=== PATIENT | male | born 1935 | race Hispanic/Latino ===

== ENCOUNTER → 2018-05-12 | Outpatient (CLI) | payer OTHER ==
[~2018-05-12] MED LIST: AMLO2.5T3 PO; ASPI-1005 PO; ASPI-555 PO; FURO20TA6 PO; LORA0.5T2 PO; LOSA100T20 PO; METO-391 PO; PARO10TA87 PO; PROB500T26 PO; SIMV20TA6 PO; SITA1TAB6 PO; TAMS-1 PO; TAMS0.4C32 PO; TYL3 PO; WARF-57 PO; WARF7.5T49 PO
== END | disposition home or self-care (01) ==
LOC: OIH 10:44
PROVIDERS: ATTEND Family Medicine
DX: I10 Essential (primary) hypertension (principal); Z95.0 Presence of cardiac pacemaker
CPT/HCPCS: 71046

== ENCOUNTER → 2018-09-19 | Outpatient (CLI) | payer OTHER, MEDICARE ==
[~2018-09-19] MED LIST changes: -AMLO2.5T3 PO; +AMLO2.5T4 PO; -LOSA100T20 PO; +LOSA100T58 PO
== END | disposition home or self-care (01) ==
LOC: OIH 08:37
PROVIDERS: ATTEND Family Medicine
DX: M94.0 Chondrocostal junction syndrome [Tietze] (principal)
CPT/HCPCS: 71046

== ENCOUNTER → 2018-12-27 | Outpatient (CLI) | payer OTHER, MEDICARE | END | disposition home or self-care (01) | LOC: SHCH 09:43 | PROVIDERS: ATTEND Internal Medicine Cardiovascular Disease | DX: I65.23 Occlusion and stenosis of bilateral carotid arteries (principal); I25.10 Atherosclerotic heart disease of native coronary artery without angina pectoris | CPT/HCPCS: 93880 ==

== ENCOUNTER → 2018-12-30 | Outpatient (CLI) | payer OTHER, MEDICARE | END | disposition home or self-care (01) | LOC: OIH 09:26 | PROVIDERS: ATTEND Family Medicine | DX: M25.511 Pain in right shoulder (principal) | CPT/HCPCS: 73030 ==

== ENCOUNTER → 2019-01-16 | Outpatient (CLI) | payer OTHER, MEDICARE ==
[~2019-01-16] VITALS: Ht 167.6 cm; Wt 103.9 kg
[~2019-01-16] MED LIST changes: +REGADENOSON 0.4 MG/5 ML PF SYG IVP SCH
== END | disposition home or self-care (01) ==
LOC: SHCH 08:06
PROVIDERS: ATTEND Internal Medicine Cardiovascular Disease
DX: I21.19 ST elevation (STEMI) myocardial infarction involving other coronary artery of inferior wall (principal); I25.89 Other forms of chronic ischemic heart disease; I25.10 Atherosclerotic heart disease of native coronary artery without angina pectoris
CPT/HCPCS: 78452; 93017; 96374; A9500 ×2; J2785

== ENCOUNTER → 2019-06-14 | Outpatient (CLI) | payer OTHER, MEDICARE ==
[~2019-06-14] MED LIST changes: -REGADENOSON 0.4 MG/5 ML PF SYG IVP SCH; +SIMV-43 PO; -SIMV20TA6 PO
== END | disposition home or self-care (01) ==
LOC: OIH 09:15
PROVIDERS: ATTEND Family Medicine
DX: I50.9 Heart failure, unspecified (principal); Z95.0 Presence of cardiac pacemaker; Z96.89 Presence of other specified functional implants
CPT/HCPCS: 71046

== ENCOUNTER → 2019-06-16 | Outpatient (CLI) | payer OTHER, MEDICARE | END | disposition home or self-care (01) | LOC: RAH 08:02 | PROVIDERS: ATTEND Family Medicine | DX: R18.8 Other ascites (principal); I50.9 Heart failure, unspecified | CPT/HCPCS: 76700 ==

== ENCOUNTER → 2019-08-11 | Outpatient (CLI) | payer OTHER, MEDICARE | END | disposition home or self-care (01) | LOC: SHCH 11:16 | PROVIDERS: ATTEND Internal Medicine Cardiovascular Disease | DX: I08.0 Rheumatic disorders of both mitral and aortic valves (principal) | CPT/HCPCS: 93306; 93356 ==

== ENCOUNTER → 2019-09-28 | Outpatient (CLI) | payer OTHER, MEDICARE | END | disposition home or self-care (01) | LOC: OIH 09:38 | PROVIDERS: ATTEND Family Medicine | DX: R05 Cough (principal) | CPT/HCPCS: 71046 ==

== ENCOUNTER → 2020-03-05 | Outpatient (CLI) | payer OTHER, MEDICARE ==
[~2020-03-05] MED LIST changes: -ASPI-555 PO; +ASPI-556 PO
== END | disposition home or self-care (01) ==
LOC: SHCH 09:04
PROVIDERS: ATTEND Internal Medicine Cardiovascular Disease
DX: I73.9 Peripheral vascular disease, unspecified (principal); R60.9 Edema, unspecified
CPT/HCPCS: 93925; 93970

== ENCOUNTER → 2020-07-11 | Outpatient (CLI) | payer OTHER, MEDICARE | END | disposition home or self-care (01) | LOC: RAH 09:54 | PROVIDERS: ATTEND Family Medicine | DX: R60.9 Edema, unspecified (principal) | CPT/HCPCS: 93971 ==

== ENCOUNTER → 2020-09-24 | Outpatient (CLI) | payer OTHER, MEDICARE | END | disposition home or self-care (01) | LOC: SHCH 09:42 | PROVIDERS: ATTEND Internal Medicine Cardiovascular Disease | DX: I65.23 Occlusion and stenosis of bilateral carotid arteries (principal); I25.10 Atherosclerotic heart disease of native coronary artery without angina pectoris | CPT/HCPCS: 93880 ==

== ENCOUNTER 2021-03-14 18:52 | Inpatient (IN) | payer OTHER, MEDICARE ==
[~2021-03-14] VITALS: Ht 167.6 cm; Wt 114.4 kg
[2021-03-14 18:58] VITALS: BP 119/50
[2021-03-14 20:16] VITALS: BP 123/50
[2021-03-14 20:47] LABS: BASOPHILS % (AUTO) 0.2 % (0.0-5.0); EOSINOPHILS % (AUTO) 0.1 % (0.0-8.0); HEMATOCRIT 21.4 % (42-54); LYMPHOCYTES % (AUTO) 7.7 % (21.0-51.0); MEAN CORPUSCULAR HGB CONC 33.2 g/dL (32.0-36.0); MEAN CORPUSCULAR VOLUME 90.3 fL (79-99); NEUTROPHILS % (AUTO) 79.9 % (40.0-77.0); PLATELET COUNT (AUTO) 120 K/uL (130-400); RED BLOOD CELL COUNT(AUTO) 2.37 MIL/uL (4.50-6.20); RED CELL DISTRIBUTION WIDTH 15.1 % (11.0-15.5)
[2021-03-14 21:07] LABS: B-TYPE NATRIURETIC PEPTIDE 142 pg/mL (0-100)
[2021-03-14 21:11] LABS: POTASSIUM 4.4 mmol/L (3.5-5.1)
[2021-03-14 21:16] LABS: ALBUMIN 2.5 g/dL (3.5-5.0); BILIRUBIN,TOTAL 1.2 mg/dL (0.2-1.0); TOTAL PROTEIN, SERUM 7.1 g/dL (6.0-8.3)
[2021-03-14 21:46] LABS: APPEARANCE,URINE Clear (CLEAR); BILIRUBIN,URINE Negative (NEGATIVE); COLOR,URINE Yellow (YELLOW); GLUCOSE, URINE (UA) Negative (NEGATIVE); KETONES,URINE Negative (NEGATIVE); LEUKOCYTE ESTERASE ,URINE Negative (NEGATIVE); NITRATE,URINE Negative (NEGATIVE); OCCULT BLOOD,URINE Negative (NEGATIVE); PROTEIN,URINE Trace mg/dL (NEGATIVE); UROBILINOGEN,URINE 0.2 mg/dL (0.2-1.0)
[2021-03-14 21:53] LABS: AMORPHOUS SEDIMENT,UR Rare /LPF (None Seen); BACTERIA,URINE Few /HPF (None Seen); RBC,URINE 0-1 /HPF (0-1); SQUAMOUS EPITHELIAL CELL,UR Rare /HPF (0-2); WBC,URINE 0-1 /HPF (0-1)
[2021-03-14] MEDS ORDERED: ASPIRIN 325MG TAB PO ONE (23:00)
[2021-03-14] MEDS ORDERED: CEFTRIAXONE 1G VIAL IVP ONE (23:00)
[2021-03-14] MEDS ORDERED: 0.9% NACL 250ML IVPB ONE (23:00)
[2021-03-14] MEDS ORDERED: AZITHROMYCIN 500MG VIAL IVPB ONE (23:00)
[2021-03-14] MEDS ORDERED: AZITHROMYCIN 500MG+NS 250ML 250 ML IV ONE (23:07)
[2021-03-14] MEDS ORDERED: ASPIRIN 325MG TAB ONE (23:07)
[2021-03-14] MEDS ORDERED: CEFTRIAXONE 1G VIAL ONE (23:07)
[2021-03-14] MEDS ORDERED: ENOXAPARIN SODIUM 40 MG/0.4 ML SYRINGE SQ SCH (23:50)
[2021-03-14] MEDS ORDERED: ROPI0.257 PO (23:54)
[2021-03-14] MEDS ORDERED: VITAD50000 PO (23:54)
[2021-03-14] MEDS ORDERED: DRON400T7 PO (23:54)
[2021-03-14] MEDS ORDERED: METO-408 PO (23:54)
[2021-03-14] MEDS ORDERED: GABA-533 PO (23:54)
[2021-03-14] MEDS ORDERED: ALEN70TA80 PO (23:54)
[2021-03-14] MEDS ORDERED: MIRA25TA PO (23:54)
[2021-03-14] MEDS ORDERED: ESCI-8 PO (23:54)
[2021-03-14] MEDS ORDERED: FOLI0.8T3 PO (23:54)
[2021-03-14] MEDS ORDERED: GLIM4TAB36 PO (23:54)
[2021-03-14] MEDS ORDERED: CILO50TA PO (23:54)
[2021-03-14] MEDS ORDERED: ALLO100T PO (23:56)
[2021-03-15] MEDS ORDERED: ONDANSETRON 4MG INJ IV PRN
[2021-03-15] MEDS ORDERED: ACETAMINOPHEN 325 MG TAB PO PRN
[2021-03-15] MEDS ORDERED: NITROGLYCERIN 0.4 MG SL TAB SL PRN
[2021-03-15] MEDS ORDERED: ZOLPIDEM TARTRATE 5 MG TAB PO PRN
[2021-03-15] MEDS ORDERED: MAG/ALUM/SIMETH 30 ML UDCUP PO PRN
[2021-03-15] MEDS ORDERED: LACTULOSE 20 GM/30 ML UDCUP PO PRN
[2021-03-15 00:01] VITALS: BP 108/47
[2021-03-15] MEDS: SIMVASTATIN 10 MG TABLET PO SCH ×2 (00:10→21:34)
[2021-03-15] MEDS ORDERED: LABETALOL 20MG SYG IV PRN (00:30)
[2021-03-15 01:02] LABS: HEMOGLOBIN A1C 6.9 % (4.0-6.0)
[2021-03-15 03:18] VITALS: BP 113/47
[2021-03-15] MEDS: CEFTRIAXONE 1G VIAL IVP SCH (05:27)
[2021-03-15] MEDS: 0.9% NACL 250ML IVPB SCH (05:30)
[2021-03-15 06:09] LABS: HEMATOCRIT 21.4 % (42-54); MEAN CORPUSCULAR HEMOGLOBIN 29.7 pg (27.0-33.0); MEAN CORPUSCULAR HGB CONC 33.2 g/dL (32.0-36.0); MEAN CORPUSCULAR VOLUME 89.5 fL (79-99); PLATELET COUNT (AUTO) 127 K/uL (130-400); RED BLOOD CELL COUNT(AUTO) 2.39 MIL/uL (4.50-6.20); RED CELL DISTRIBUTION WIDTH 14.9 % (11.0-15.5); WHITE BLOOD COUNT (AUTO) 13.4 K/uL (4.8-10.8)
[2021-03-15 06:28] LABS: BAND NEUTROPHILS % (MANUAL) 3 % (0-2); LYMPHOCYTES % (MANUAL) 7 % (22-44); MAN.DIFF COMMENT-IMPRESSION MANUAL DIFFERENTIAL; MONOCYTES % (MANUAL) 4 % (2-9); PLATELET MORPHOLOGY COMMENT ADEQUATE; SEGMENTED NEUTROPHILS % 86 % (40-70)
[2021-03-15 06:36] LABS: ALBUMIN 2.5 g/dL (3.5-5.0); CREATININE 4.3 mg/dL (0.5-1.5); POTASSIUM 4.2 mmol/L (3.5-5.1); THYROID STIMULATING HORMONE 0.53 uIU/mL (0.36-3.74)
[2021-03-15] MEDS: IPRATROPIUM/ALBUTEROL SULFATE 3 ML SOLUTION IH SCH ×5 (06:37→23:52)
[2021-03-15] MEDS ORDERED: CILOSTAZOL 100 MG TAB PO SCH (07:30)
[2021-03-15] MEDS ORDERED: HEPARIN 5,000 UNIT VIAL SQ SCH (08:00)
[2021-03-15] MEDS ORDERED: ASPIRIN 81 MG EC TAB PO SCH (09:00)
[2021-03-15] MEDS: METOPROLOL SUCCINATE 50 MG TAB.SR.24H PO SCH (09:00)
[2021-03-15] MEDS: **HM** MYRBETRIQ 25MG PO SCH (09:00)
[2021-03-15] MEDS: CITALOPRAM 20 MG TABLET PO SCH (10:38)
[2021-03-15] MEDS: FAMOTIDINE 20MG VIAL IV SCH (10:38)
[2021-03-15] MEDS: FOLIC ACID 1 MG TABLET PO SCH (10:39)
[2021-03-15] MEDS: GABAPENTIN 300 MG CAPSULE PO SCH ×2 (10:39→21:34)
[2021-03-15] MEDS: FUROSEMIDE 20 MG TABLET PO SCH (10:40)
[2021-03-15] MEDS: TAMSULOSIN HCL 0.4 MG CAP.ER.24H PO SCH (10:40)
[2021-03-15] MEDS ORDERED: DRONEDARONE HYDROCHLORIDE 400 MG TABLET PO SCH (12:00)
[2021-03-15 13:51] LABS: HEMATOCRIT 21.8 % (42-54)
[2021-03-15 14:08] LABS: PROTEIN,URINE RANDOM 61.8 mg/dL (0-11.9)
[2021-03-15] MEDS ORDERED: WARF-57 PO (15:36)
[2021-03-15] MEDS ORDERED: WARF2.5T85 PO (15:36)
[2021-03-15 20:53] LABS: HEMATOCRIT 21.1 % (42-54)
[2021-03-15] MEDS ORDERED: AZITHROMYCIN 500MG VIAL IVPB SCH (21:00)
[2021-03-15] MEDS: ROPINIROLE HCL 0.25 MG TABLET PO SCH (21:34)
[2021-03-15 21:56] VITALS: BP 116/50
[2021-03-16] VITALS (7 sets, daily range): BP systolic 110–141; BP diastolic 45–63
[2021-03-16] MEDS: GUAIFENESIN-DM 200/20 MG 10 ML PO PRN (03:47)
[2021-03-16] MEDS: CEFTRIAXONE 1G VIAL IVP SCH (04:56)
[2021-03-16] MEDS ORDERED: AZITHROMYCIN 500MG+NS 250ML 250 ML IV ONE (05:04)
[2021-03-16 05:35] LABS: BASOPHILS % (AUTO) 0.2 % (0.0-5.0); EOSINOPHILS % (AUTO) 0.3 % (0.0-8.0); HEMATOCRIT 22.6 % (42-54); LYMPHOCYTES % (AUTO) 5.2 % (21.0-51.0); MEAN CORPUSCULAR HEMOGLOBIN 30.3 pg (27.0-33.0); MEAN CORPUSCULAR HGB CONC 33.6 g/dL (32.0-36.0); MONOCYTES % (AUTO) 8.4 % (3.0-13.0); PLATELET COUNT (AUTO) 118 K/uL (130-400); RED BLOOD CELL COUNT(AUTO) 2.51 MIL/uL (4.50-6.20); RED CELL DISTRIBUTION WIDTH 14.7 % (11.0-15.5); WHITE BLOOD COUNT (AUTO) 12.8 K/uL (4.8-10.8)
[2021-03-16 05:55] LABS: INR 2.9 (0.85-1.15); PROTHROMBIN TIME 28.7 SEC (9.6-11.6)
[2021-03-16 05:58] LABS: CREATININE 4.9 mg/dL (0.5-1.5); PHOSPHORUS 7.9 mg/dL (2.5-4.9); POTASSIUM 3.6 mmol/L (3.5-5.1)
[2021-03-16] MEDS: IPRATROPIUM/ALBUTEROL SULFATE 3 ML SOLUTION IH SCH ×3 (06:00→19:42)
[2021-03-16] MEDS ORDERED: AZITHROMYCIN 500MG VIAL IVPB SCH (06:00)
[2021-03-16] MEDS: 0.9% NACL 250ML IVPB SCH (06:16)
[2021-03-16] MEDS: **HM** MYRBETRIQ 25MG PO SCH (09:00)
[2021-03-16] MEDS ORDERED: SOLU-MEDROL 40MG VIAL IVP SCH (09:00)
[2021-03-16] MEDS: FAMOTIDINE 20MG VIAL IV SCH (10:43)
[2021-03-16] MEDS: FOLIC ACID 1 MG TABLET PO SCH (10:43)
[2021-03-16] MEDS: CITALOPRAM 20 MG TABLET PO SCH (10:43)
[2021-03-16] MEDS: TAMSULOSIN HCL 0.4 MG CAP.ER.24H PO SCH (10:43)
[2021-03-16] MEDS: GABAPENTIN 300 MG CAPSULE PO SCH ×2 (10:43→20:14)
[2021-03-16] MEDS: METOPROLOL SUCCINATE 50 MG TAB.SR.24H PO SCH ×2 (10:44→10:58)
[2021-03-16] MEDS ORDERED: EPOETIN ALFA-EPBX (ESRD) 10,000 UNIT/ML VIAL SQ SCH (13:00)
[2021-03-16] MEDS ORDERED: COMPOUND IV MISC 1 EACH IVSOLN MISC PRN (13:00)
[2021-03-16] MEDS: DRONEDARONE HYDROCHLORIDE 400 MG TABLET PO SCH ×2 (13:45→20:14)
[2021-03-16] MEDS: ROPINIROLE HCL 0.25 MG TABLET PO SCH (20:14)
[2021-03-16] MEDS: SIMVASTATIN 10 MG TABLET PO SCH (20:14)
[2021-03-16] MEDS: IRON SUCROSE COMPLEX 100 MG in 0.9%NACL 50ML 50 ML IV SCH (20:15)
[2021-03-16] MEDS: ACETAMINOPHEN 325 MG TAB PO PRN (23:39)
[2021-03-17] MEDS: IPRATROPIUM/ALBUTEROL SULFATE 3 ML SOLUTION IH SCH ×5 (02:09→23:26)
[2021-03-17 03:57] VITALS: BP 123/48
[2021-03-17] MEDS: 0.9% NACL 250ML IVPB SCH ×2 (04:15→23:39)
[2021-03-17] MEDS: CEFTRIAXONE 2GM VIAL IVP SCH (04:28)
[2021-03-17 06:10] LABS: HEMATOCRIT 22.2 % (42-54); MEAN CORPUSCULAR HEMOGLOBIN 29.3 pg (27.0-33.0); MEAN CORPUSCULAR HGB CONC 34.2 g/dL (32.0-36.0); MEAN CORPUSCULAR VOLUME 85.7 fL (79-99); PLATELET COUNT (AUTO) 135 K/uL (130-400); RED BLOOD CELL COUNT(AUTO) 2.59 MIL/uL (4.50-6.20); RED CELL DISTRIBUTION WIDTH 14.7 % (11.0-15.5); WHITE BLOOD COUNT (AUTO) 11.1 K/uL (4.8-10.8)
[2021-03-17 06:24] LABS: CREATININE 4.3 mg/dL (0.5-1.5); POTASSIUM 3.1 mmol/L (3.5-5.1)
[2021-03-17 07:10] LABS: ERYTHROCYTE SEDIMENTATION RATE > 150 MM/HR (0-20)
[2021-03-17 08:12] VITALS: BP 134/54
[2021-03-17] MEDS: **HM** MYRBETRIQ 25MG PO SCH (09:00)
[2021-03-17] MEDS: TAMSULOSIN HCL 0.4 MG CAP.ER.24H PO SCH (09:26)
[2021-03-17] MEDS: GABAPENTIN 300 MG CAPSULE PO SCH ×2 (09:26→21:22)
[2021-03-17] MEDS: CITALOPRAM 20 MG TABLET PO SCH (09:26)
[2021-03-17] MEDS: DRONEDARONE HYDROCHLORIDE 400 MG TABLET PO SCH ×2 (09:26→17:02)
[2021-03-17] MEDS: FOLIC ACID 1 MG TABLET PO SCH (09:26)
[2021-03-17] MEDS: FAMOTIDINE 20MG VIAL IV SCH (09:26)
[2021-03-17] MEDS: METOPROLOL SUCCINATE 50 MG TAB.SR.24H PO SCH (09:27)
[2021-03-17] MEDS: FUROSEMIDE 20 MG TABLET PO SCH (09:27)
[2021-03-17] MEDS: IRON SUCROSE COMPLEX 100 MG in 0.9%NACL 50ML 50 ML IV SCH (09:27)
[2021-03-17 11:49] VITALS: BP 141/48
[2021-03-17] MEDS ORDERED: KCL 20 MEQ ERTAB PO ONE ×2 (15:30→17:00)
[2021-03-17 16:34] VITALS: BP 129/54
[2021-03-17] MEDS ORDERED: WARFARIN SODIUM 2.5 MG TAB PO SCH (17:00)
[2021-03-17 20:00] VITALS: BP 124/55
[2021-03-17] MEDS ORDERED: WARFARIN SODIUM 5 MG TAB PO SCH (21:00)
[2021-03-17] MEDS: WARFARIN SODIUM 2.5 MG TAB PO SCH (21:23)
[2021-03-17] MEDS: SIMVASTATIN 10 MG TABLET PO SCH (21:23)
[2021-03-17] MEDS: ROPINIROLE HCL 0.25 MG TABLET PO SCH (21:23)
[2021-03-18] VITALS (7 sets, daily range): BP systolic 104–129; BP diastolic 45–74
[2021-03-18] MEDS: CEFTRIAXONE 2GM VIAL IVP SCH (04:52)
[2021-03-18 05:01] LABS: MEAN CORPUSCULAR HEMOGLOBIN 29.1 pg (27.0-33.0); MEAN CORPUSCULAR HGB CONC 33.5 g/dL (32.0-36.0); MEAN CORPUSCULAR VOLUME 86.8 fL (79-99); NUCLEATED RED BLOOD CELLS 0.2 % (0.0-0.19); RED BLOOD CELL COUNT(AUTO) 2.65 MIL/uL (4.50-6.20); RED CELL DISTRIBUTION WIDTH 14.9 % (11.0-15.5)
[2021-03-18 05:21] LABS: CREATININE 3.6 mg/dL (0.5-1.5)
[2021-03-18 05:39] LABS: POTASSIUM 2.5 mmol/L (3.5-5.1)
[2021-03-18 05:55] LABS: PROTHROMBIN TIME 38.6 SEC (9.6-11.6)
[2021-03-18 05:56] LABS: INR 4.02 (0.85-1.15)
[2021-03-18] MEDS: KCL 20 MEQ ERTAB PO SCH ×2 (06:00→23:28)
[2021-03-18] MEDS ORDERED: KCL 20 MEQ ERTAB PO ONE ×2 (06:02→23:30)
[2021-03-18] MEDS: IPRATROPIUM/ALBUTEROL SULFATE 3 ML SOLUTION IH SCH ×3 (06:31→18:29)
[2021-03-18] MEDS: IRON SUCROSE COMPLEX 100 MG in 0.9%NACL 50ML 50 ML IV SCH (08:59)
[2021-03-18] MEDS: DRONEDARONE HYDROCHLORIDE 400 MG TABLET PO SCH ×2 (09:00→15:22)
[2021-03-18] MEDS: **HM** MYRBETRIQ 25MG PO SCH (09:00)
[2021-03-18] MEDS ORDERED: KCL 20 MEQ ERTAB PO SCH (09:00)
[2021-03-18] MEDS: CITALOPRAM 20 MG TABLET PO SCH (09:01)
[2021-03-18] MEDS: FAMOTIDINE 20MG VIAL IV SCH (09:01)
[2021-03-18] MEDS: FOLIC ACID 1 MG TABLET PO SCH (09:02)
[2021-03-18] MEDS: GABAPENTIN 300 MG CAPSULE PO SCH ×2 (09:02→20:59)
[2021-03-18] MEDS: TAMSULOSIN HCL 0.4 MG CAP.ER.24H PO SCH (09:04)
[2021-03-18] MEDS: DOXYCYCLINE 100MG+NS 250ML IV SCH (15:26)
[2021-03-18] MEDS: 0.9% NACL 250ML IVPB SCH (15:27)
[2021-03-18] MEDS: ROPINIROLE HCL 0.25 MG TABLET PO SCH (20:58)
[2021-03-18] MEDS ORDERED: WARFARIN SODIUM 5 MG TAB PO SCH (21:00)
[2021-03-18] MEDS: SIMVASTATIN 10 MG TABLET PO SCH (21:00)
[2021-03-18 21:58] LABS: CREATININE 2.9 mg/dL (0.5-1.5)
[2021-03-18 22:01] LABS: POTASSIUM 2.8 mmol/L (3.5-5.1)
[2021-03-19] MEDS: IPRATROPIUM/ALBUTEROL SULFATE 3 ML SOLUTION IH SCH ×4 (00:40→17:19)
[2021-03-19] MEDS: DOXYCYCLINE 100MG+NS 250ML IV SCH ×2 (02:31→14:35)
[2021-03-19] MEDS: 0.9% NACL 250ML IVPB SCH ×2 (02:31→14:36)
[2021-03-19 04:06] VITALS: BP 125/58
[2021-03-19 04:27] LABS: HEMATOCRIT 23.5 % (42-54); MEAN CORPUSCULAR HGB CONC 33.6 g/dL (32.0-36.0); MEAN CORPUSCULAR VOLUME 86.4 fL (79-99); RED BLOOD CELL COUNT(AUTO) 2.72 MIL/uL (4.50-6.20); RED CELL DISTRIBUTION WIDTH 15.2 % (11.0-15.5); WHITE BLOOD COUNT (AUTO) 10.1 K/uL (4.8-10.8)
[2021-03-19 04:50] LABS: CREATININE 2.6 mg/dL (0.5-1.5)
[2021-03-19 04:55] LABS: POTASSIUM 2.9 mmol/L (3.5-5.1)
[2021-03-19 05:00] LABS: PARTIAL THROMBOPLASTIN TIME 63.8 SEC (26.3-35.5)
[2021-03-19 05:06] LABS: PROTHROMBIN TIME 40.5 SEC (9.6-11.6)
[2021-03-19 05:07] LABS: INR 4.24 (0.85-1.15)
[2021-03-19] MEDS ORDERED: KCL 20 MEQ ERTAB PO ONE ×4 (05:10→11:18)
[2021-03-19] MEDS: CEFTRIAXONE 2GM VIAL IVP SCH (05:28)
[2021-03-19] MEDS: WARFARIN SODIUM 2.5 MG TAB PO SCH (05:29)
[2021-03-19] MEDS: ACETAMINOPHEN 325 MG TAB PO PRN (05:37)
[2021-03-19 08:00] VITALS: BP 110/39
[2021-03-19] MEDS: DRONEDARONE HYDROCHLORIDE 400 MG TABLET PO SCH ×2 (11:28→15:42)
[2021-03-19] MEDS: FAMOTIDINE 20MG VIAL IV SCH (11:28)
[2021-03-19] MEDS: IRON SUCROSE COMPLEX 100 MG in 0.9%NACL 50ML 50 ML IV SCH (11:28)
[2021-03-19] MEDS: TAMSULOSIN HCL 0.4 MG CAP.ER.24H PO SCH (11:29)
[2021-03-19] MEDS: FOLIC ACID 1 MG TABLET PO SCH (11:29)
[2021-03-19] MEDS: METOPROLOL SUCCINATE 50 MG TAB.SR.24H PO SCH (11:29)
[2021-03-19] MEDS: CITALOPRAM 20 MG TABLET PO SCH (11:30)
[2021-03-19] MEDS: GABAPENTIN 300 MG CAPSULE PO SCH ×2 (11:30→20:48)
[2021-03-19] MEDS: FUROSEMIDE 20 MG TABLET PO SCH (11:33)
[2021-03-19] MEDS: **HM** MYRBETRIQ 25MG PO SCH (11:36)
[2021-03-19 12:00] VITALS: BP 141/47
[2021-03-19 15:18] LABS: CREATININE 2.3 mg/dL (0.5-1.5)
[2021-03-19 16:00] VITALS: BP 122/78
[2021-03-19] MEDS ORDERED: POTASSIUM CHLORIDE 10% ELIXIR 20 MEQ/15 ML UDCUP PO PRN (16:00)
[2021-03-19] MEDS ORDERED: SOLU-MEDROL 125MG VIAL IVP ONE (16:30)
[2021-03-19] MEDS ORDERED: BENZONATATE 100 MG CAPSULE PO PRN (17:00)
[2021-03-19] MEDS ORDERED: SOLU-MEDROL 125MG VIAL ONE (17:33)
[2021-03-19] MEDS: GUAIFENESIN-DM 200/20 MG 10 ML PO PRN (17:35)
[2021-03-19] MEDS: LIDOCAINE HCL-MPF 1% 2ML VIAL IV PRN (17:35)
[2021-03-19] MEDS: POTASSIUM CHLORIDE 10MEQ/100ML 100 ML IV PRN (17:37)
[2021-03-19 19:35] VITALS: BP 151/70
[2021-03-19] MEDS: SIMVASTATIN 10 MG TABLET PO SCH (20:47)
[2021-03-19] MEDS: ROPINIROLE HCL 0.25 MG TABLET PO SCH (20:47)
[2021-03-19 23:44] VITALS: BP 143/60
[2021-03-20] MEDS: IPRATROPIUM/ALBUTEROL SULFATE 3 ML SOLUTION IH SCH ×5 (00:26→23:26)
[2021-03-20 03:20] VITALS: BP 146/68
[2021-03-20] MEDS: 0.9% NACL 250ML IVPB SCH ×2 (04:08→15:11)
[2021-03-20] MEDS: DOXYCYCLINE 100MG+NS 250ML IV SCH ×2 (04:08→15:10)
[2021-03-20] MEDS: CEFTRIAXONE 2GM VIAL IVP SCH (05:35)
[2021-03-20 05:38] LABS: HEMATOCRIT 26.3 % (42-54); MEAN CORPUSCULAR HEMOGLOBIN 29.2 pg (27.0-33.0); MEAN CORPUSCULAR HGB CONC 33.5 g/dL (32.0-36.0); MEAN CORPUSCULAR VOLUME 87.4 fL (79-99); RED BLOOD CELL COUNT(AUTO) 3.01 MIL/uL (4.50-6.20); RED CELL DISTRIBUTION WIDTH 15.6 % (11.0-15.5); WHITE BLOOD COUNT (AUTO) 12.5 K/uL (4.8-10.8)
[2021-03-20] MEDS: DRONEDARONE HYDROCHLORIDE 400 MG TABLET PO SCH ×2 (06:33→18:02)
[2021-03-20 06:48] LABS: ALBUMIN 2.1 g/dL (3.5-5.0); BILIRUBIN,TOTAL 0.4 mg/dL (0.2-1.0); POTASSIUM 3.2 mmol/L (3.5-5.1); TOTAL PROTEIN, SERUM 7.3 g/dL (6.0-8.3)
[2021-03-20] MEDS: LIDOCAINE HCL-MPF 1% 2ML VIAL IV PRN (07:00)
[2021-03-20] MEDS: POTASSIUM CHLORIDE 10MEQ/100ML 100 ML IV PRN (07:01)
[2021-03-20 08:00] VITALS: BP 157/94
[2021-03-20] MEDS: METOPROLOL SUCCINATE 50 MG TAB.SR.24H PO SCH (09:18)
[2021-03-20] MEDS: SOLU-MEDROL 40MG VIAL IVP SCH ×2 (09:18→20:43)
[2021-03-20] MEDS: TAMSULOSIN HCL 0.4 MG CAP.ER.24H PO SCH (09:19)
[2021-03-20] MEDS: CITALOPRAM 20 MG TABLET PO SCH (09:20)
[2021-03-20] MEDS: FOLIC ACID 1 MG TABLET PO SCH (09:20)
[2021-03-20] MEDS: GUAIFENESIN-DM 200/20 MG 10 ML PO PRN (09:21)
[2021-03-20] MEDS: PANTOPRAZOLE 40 MG TAB DR PO SCH (09:23)
[2021-03-20] MEDS: FUROSEMIDE 20 MG TABLET PO SCH (09:24)
[2021-03-20] MEDS: IRON SUCROSE COMPLEX 100 MG in 0.9%NACL 50ML 50 ML IV SCH (09:25)
[2021-03-20] MEDS: **HM** MYRBETRIQ 25MG PO SCH (09:25)
[2021-03-20 09:41] LABS: PARTIAL THROMBOPLASTIN TIME 69.7 SEC (26.3-35.5)
[2021-03-20 09:47] LABS: INR 5.42 (0.85-1.15); PROTHROMBIN TIME 50.7 SEC (9.6-11.6)
[2021-03-20] MEDS ORDERED: PHYTONADIONE 10 MG in 0.9%NACL 50ML 50 ML IVPB SCH (10:30)
[2021-03-20 12:00] VITALS: BP 164/65
[2021-03-20 16:00] VITALS: BP 162/57
[2021-03-20] MEDS: ACETAMINOPHEN 325 MG TAB PO PRN (18:12)
[2021-03-20] MEDS ORDERED: GLUCAGON 1MG KIT 1 MG ML IM PRN (18:30)
[2021-03-20] MEDS ORDERED: DEXTROSE 50%-WATER 50 ML DISP.SYRIN IV PRN (18:30)
[2021-03-20 19:35] VITALS: BP 153/65
[2021-03-20] MEDS: SIMVASTATIN 10 MG TABLET PO SCH (20:43)
[2021-03-20] MEDS: ROPINIROLE HCL 0.25 MG TABLET PO SCH (20:43)
[2021-03-20] MEDS: INSULIN HUMULIN R 100 UNIT/ML 3ML SQ SCH (20:44)
[2021-03-20] MEDS ORDERED: FUROSEMIDE 40MG VIAL IV ONE (22:30)
[2021-03-20 22:50] VITALS: BP 179/71
[2021-03-21] MEDS: DOXYCYCLINE 100MG+NS 250ML IV SCH ×2 (03:23→15:47)
[2021-03-21] MEDS: 0.9% NACL 250ML IVPB SCH ×2 (03:24→15:47)
[2021-03-21 03:34] VITALS: BP 176/62
[2021-03-21 04:16] LABS: BASOPHILS % (AUTO) 0.2 % (0.0-5.0); LYMPHOCYTES % (AUTO) 3.8 % (21.0-51.0); MEAN CORPUSCULAR HEMOGLOBIN 29.4 pg (27.0-33.0); MEAN CORPUSCULAR HGB CONC 34.4 g/dL (32.0-36.0); MEAN CORPUSCULAR VOLUME 85.4 fL (79-99); MONOCYTES % (AUTO) 2.6 % (3.0-13.0); NEUTROPHILS % (AUTO) 89.1 % (40.0-77.0); NUCLEATED RED BLOOD CELLS 0.2 % (0.0-0.19); PLATELET COUNT (AUTO) 239 K/uL (130-400); RED BLOOD CELL COUNT(AUTO) 3.16 MIL/uL (4.50-6.20); RED CELL DISTRIBUTION WIDTH 15.4 % (11.0-15.5); WHITE BLOOD COUNT (AUTO) 11.9 K/uL (4.8-10.8)
[2021-03-21] MEDS: CEFTRIAXONE 2GM VIAL IVP SCH (04:17)
[2021-03-21 04:24] LABS: CREATININE 1.7 mg/dL (0.5-1.5); INR 1.53 (0.85-1.15)
[2021-03-21 04:25] LABS: PARTIAL THROMBOPLASTIN TIME 39.1 SEC (26.3-35.5)
[2021-03-21 04:31] LABS: POTASSIUM 2.3 mmol/L (3.5-5.1)
[2021-03-21] MEDS: POTASSIUM CHLORIDE 10MEQ/100ML 100 ML IV PRN ×2 (04:51→11:37)
[2021-03-21] MEDS: KCL 20 MEQ ERTAB PO PRN ×7 (04:51→19:23)
[2021-03-21] MEDS: LIDOCAINE HCL-MPF 1% 2ML VIAL IV PRN ×2 (04:52→11:37)
[2021-03-21] MEDS: IPRATROPIUM/ALBUTEROL SULFATE 3 ML SOLUTION IH SCH ×3 (06:12→19:21)
[2021-03-21] MEDS: DRONEDARONE HYDROCHLORIDE 400 MG TABLET PO SCH ×2 (06:27→16:50)
[2021-03-21] MEDS: INSULIN HUMULIN R 100 UNIT/ML 3ML SQ SCH ×4 (06:27→20:58)
[2021-03-21] MEDS: PANTOPRAZOLE 40 MG TAB DR PO SCH (06:28)
[2021-03-21 08:00] VITALS: BP 128/51
[2021-03-21] MEDS: SOLU-MEDROL 40MG VIAL IVP SCH ×2 (08:34→20:57)
[2021-03-21] MEDS: TAMSULOSIN HCL 0.4 MG CAP.ER.24H PO SCH (08:35)
[2021-03-21] MEDS: FUROSEMIDE 20 MG TABLET PO SCH (08:35)
[2021-03-21] MEDS: CITALOPRAM 20 MG TABLET PO SCH (08:35)
[2021-03-21] MEDS: METOPROLOL SUCCINATE 50 MG TAB.SR.24H PO SCH (08:35)
[2021-03-21] MEDS: FOLIC ACID 1 MG TABLET PO SCH (08:35)
[2021-03-21] MEDS: **HM** MYRBETRIQ 25MG PO SCH (08:47)
[2021-03-21] MEDS: IRON SUCROSE COMPLEX 100 MG in 0.9%NACL 50ML 50 ML IV SCH (09:00)
[2021-03-21] MEDS: APIXABAN 5 MG TABLET PO SCH ×2 (11:31→20:57)
[2021-03-21 11:56] VITALS: BP 137/31
[2021-03-21 13:30] VITALS: BP 145/61
[2021-03-21 16:00] VITALS: BP 155/64
[2021-03-21] MEDS ORDERED: MAGNESIUM 2GM PREMIX 50ML 50 ML IV ONE (19:09)
[2021-03-21] MEDS ORDERED: MAGNESIUM 2GM PREMIX 50ML 50 ML IV STA (19:36)
[2021-03-21 20:00] VITALS: BP 135/46
[2021-03-21] MEDS ORDERED: KCL 20 MEQ ERTAB PO ONE (20:00)
[2021-03-21] MEDS: ROPINIROLE HCL 0.25 MG TABLET PO SCH (20:57)
[2021-03-21] MEDS: SIMVASTATIN 10 MG TABLET PO SCH (20:57)
[2021-03-22] VITALS: BP 165/64
[2021-03-22] MEDS: IPRATROPIUM/ALBUTEROL SULFATE 3 ML SOLUTION IH SCH (01:03)
== END 2021-03-22 02:04 | DRG 871 ==
LOC: EDH 18:52 → OBSVTOIN 23:28 → EDHIP 23:28 → 4CH 03-16 01:38
PROVIDERS: ADMIT Internal Medicine Pulmonary Disease; ATTEND Internal Medicine Pulmonary Disease
PROC: 30233N1 Transfusion of Nonautologous Red Blood Cells into Peripheral Vein, Percutaneous Approach (ICD-10-PCS; principal; 2021-03-15)
DX: A41.9 Sepsis, unspecified organism (principal); J18.9 Pneumonia, unspecified organism; G92 Toxic encephalopathy; N17.9 Acute kidney failure, unspecified; E87.1 Hypo-osmolality and hyponatremia; M00.9 Pyogenic arthritis, unspecified; N39.0 Urinary tract infection, site not specified; Z68.41 Body mass index [BMI] 40.0-44.9, adult; N18.4 Chronic kidney disease, stage 4 (severe); E11.22 Type 2 diabetes mellitus with diabetic chronic kidney disease; M10.9 Gout, unspecified; R33.8 Other retention of urine; N40.1 Benign prostatic hyperplasia with lower urinary tract symptoms; I48.0 Paroxysmal atrial fibrillation; Z20.822 Contact with and (suspected) exposure to COVID-19; D50.9 Iron deficiency anemia, unspecified; D69.6 Thrombocytopenia, unspecified; E66.01 Morbid (severe) obesity due to excess calories; E78.00 Pure hypercholesterolemia, unspecified; E78.5 Hyperlipidemia, unspecified; F03.90 Unspecified dementia, unspecified severity, without behavioral disturbance, psychotic disturbance, mood disturbance, and anxiety; G89.29 Other chronic pain; I12.9 Hypertensive chronic kidney disease with stage 1 through stage 4 chronic kidney disease, or unspecified chronic kidney disease; I25.10 Atherosclerotic heart disease of native coronary artery without angina pectoris; R53.81 Other malaise; R79.1 Abnormal coagulation profile; E87.8 Other disorders of electrolyte and fluid balance, not elsewhere classified; Z74.01 Bed confinement status; Z79.01 Long term (current) use of anticoagulants; Z79.82 Long term (current) use of aspirin; Z95.1 Presence of aortocoronary bypass graft; Z95.0 Presence of cardiac pacemaker; Z87.891 Personal history of nicotine dependence; Z83.3 Family history of diabetes mellitus
CPT/HCPCS: 36415; 71045; 71250; 73562; 73610; 74176; 78582; 80048; 80053; 81001; 82270; 82570; 82948; 83036; 83540; 83550; 83605; 83690; 83735; 83880; 84100; 84132; 84145; 84156; 84165; 84443; 84484; 85014; 85018; 85025; 85027; 85378; 85610; 85651; 85730; 86850; 86900; 86901; 86923; 87040; 87046; 87077; 87088; 87186; 87324; 87635; 87804; 92526; 92610; 93005; 93306; 93356; 93971; 94640; 94664; 94667; 94668; A9540; A9558; C9803; G0378; J0456; J0696; J1650; J1756; J1815; J1940; J2920; J2930; J3430; J3475; J3490; J7050; P9016